=== PATIENT | male | born 1960 | race Caucasian/White ===

== ENCOUNTER 2022-04-21 20:02 | Emergency (ER) | payer SELFPAY ==
[~2022-04-21 20:02] MED LIST: Iopamidol 370 76% 100 ML VIAL ONE
[2022-04-21] MEDS ORDERED: Ondansetron PF 4 MG/2 ML Vial ONE (22:22)
[2022-04-21] MEDS ORDERED: Dicyclomine 20 MG/2 ML VIAL ONE (22:22)
[2022-04-21] MEDS ORDERED: Lactated Ringer's 1,000 ML ONE (22:22)
[2022-04-21] MEDS ORDERED: Lidocaine Viscous Sol 2% 15 ml UD Cup ONE (22:22)
[2022-04-21] MEDS ORDERED: Mag-Al Plus 1200 MG/1200 MG/120 MG/30 ML UDCUP ONE (22:22)
[2022-04-21 23:04] LABS: Band 9 % (5-11); Lymphocytes 3 % (21-51); MDiff Complete? YES; Mean Corpuscular HGB CONC 34.2 g/dL (32.0-36.0); Mean Corpuscular Hemoglobin 29.9 pg (27.0-31.0); Mean Corpuscular Volume 87.5 fl (78.0-98.0); Mean Platelet Volume 9.5 fL (7.4-10.4); Monocytes 2 % (0-10); Neutrophil 84 % (42-75); Platelet Count 237 10x3/uL (130-400); RBC Distribution Width 11.9 % (11.5-14.5); RBC Morphology Normal; Reactive Lymphocytes 1 % (0-10); Red Blood Cell (RBC) Count 6.01 mill/uL (4.70-6.10); White Blood Cell (WBC) Count 20.1 10x3/uL (4.8-10.8)
[2022-04-21 23:06] LABS: ALT (SGPT) 26 U/L (8-55); AST (SGOT) 13 U/L (5-34); Albumin 4.3 g/dL (3.4-4.8); Alkaline Phosphatase 29 U/L (40-110); Anion Gap 17 mmol/L (10-20); BUN (Urea Nitrogen) 16 mg/dL (8.4-25.7); Calc. Creatinine Clearance 0 mL/min (70-130); Calcium 9.4 mg/dL (7.8-10.44); Carbon Dioxide 26 mmol/L (23-31); Chloride 99 mmol/L (98-107); Estimated GFR 70; Globulin 2.8 g/dL (2.4-3.5); Glucose 242 mg/dL (80-115); Lipase 5 U/L (8-78); Magnesium 1.8 mg/dL (1.6-2.6); Potassium 4.5 mmol/L (3.5-5.1); Protein, Total 7.1 g/dL (5.8-8.1); Sodium 137 mmol/L (136-145)
[2022-04-21 23:55] LABS: Bilirubin Negative (Negative); Blood, Urine Negative (Negative); Clarity Clear (Clear); Glucose, Urine (Dipstick) 500 mg/dL (Negative); Ketone, Urine 80 mg/dL (Negative); Leukocyte Negative (Negative); Nitrite Negative (Negative); Protein, Urine (Dipstick) Negative (Neg-Trace); Urobilinogen 0.2 mg/dL (Less than 2); pH, Urine 6.5 (5.0-9.0)
[2022-04-22 00:09] LABS: Amphetamine Not Detected (NotDetected); Benzodiazepine Screen Detected (NotDetected); Cocaine Metabolite Screen Not Detected (NotDetected); Methamphetamine Not Detected (NotDetected); Opiate Screen Not Detected (NotDetected); Phencyclidine (PCP) Not Detected (NotDetected); THC/Cannabinoid Screen Detected (NotDetected)
[2022-04-22 00:10] LABS: Barbiturates Screen Not Detected (NotDetected); Medtox Control Line Valid? VALID (VALID); Methadone Not Detected (NotDetected); Oxycodone Screen Not Detected (NotDetected); Tricyclic Screen Not Detected (NotDetected)
[2022-04-22] MEDS ORDERED: Lactated Ringer's 1,000 ML ONE (00:24)
[2022-04-22 01:36] LABS: Lactic Acid 1.5 mmol/L (0.5-2.2)
== END 2022-04-22 01:48 | disposition home or self-care (01) ==
LOC: MADERS 20:02
DX: K52.9 Noninfective gastroenteritis and colitis, unspecified (principal); E11.65 Type 2 diabetes mellitus with hyperglycemia; Z20.822 Contact with and (suspected) exposure to COVID-19
CPT/HCPCS: 74177; 80053; 80306; 81003; 83605; 83690; 83735; 85025; 87040; 87804; 93005; 94760; 96361; 96372; 96374; J2405; J7120; Q9967; U0003; U0005

== ENCOUNTER 2022-04-23 06:47 | Emergency (ER) | payer SELFPAY ==
[2022-04-23] MEDS ORDERED: Sodium Chloride 0.9% 1,000 ML ONE (07:39)
[2022-04-23] MEDS ORDERED: Ondansetron PF 4 MG/2 ML Vial ONE (07:39)
[2022-04-23] MEDS ORDERED: Morphine 4 MG/ML VIAL ONE ×2 (07:39→09:27)
[2022-04-23] MEDS ORDERED: Prochlorperazine 10 MG/2 ML VIAL ONE (07:39)
[2022-04-23 07:52] LABS: #Basophils 0.1 thou/uL (0.0-0.2); #Lymphocytes 0.7 thou/uL (1.20-3.40); #Monocytes 0.4 thou/uL (0.11-0.59); #Neutrophils 14.8 thou/uL (1.40-6.50); %Basophils 0.7 % (0.0-1.0); %Lymphocytes 4.4 % (21.0-51.0); %Monocytes 2.7 % (0.0-10.0); %Neutrophils 92.2 % (42.0-75.0); Hemoglobin 18.1 g/dL (14.0-18.0); Mean Corpuscular HGB CONC 34.5 g/dL (32.0-36.0); Mean Corpuscular Hemoglobin 30.1 pg (27.0-31.0); Mean Corpuscular Volume 87.2 fl (78.0-98.0); Mean Platelet Volume 9.3 fL (7.4-10.4); Platelet Count 204 10x3/uL (130-400); RBC Distribution Width 11.5 % (11.5-14.5)
[2022-04-23 08:03] LABS: CK (CPK) 183 U/L (30-200); CRP (Inflammatory) Less than 0.50 mg/dL (= or < 0.5); Magnesium 1.9 mg/dL (1.6-2.6)
[2022-04-23 08:08] LABS: ALT (SGPT) 26 U/L (8-55); AST (SGOT) 22 U/L (5-34); Albumin 4.4 g/dL (3.4-4.8); Alkaline Phosphatase 32 U/L (40-110); Anion Gap 18 mmol/L (10-20); BUN (Urea Nitrogen) 15 mg/dL (8.4-25.7); Bilirubin, Total 1.1 mg/dL (0.2-1.2); Calc. Creatinine Clearance 0 mL/min (70-130); Calcium 9.1 mg/dL (7.8-10.44); Carbon Dioxide 22 mmol/L (23-31); Chloride 99 mmol/L (98-107); Estimated GFR 76; Glucose 204 mg/dL (80-115); Lipase 73 U/L (8-78); Potassium 4.4 mmol/L (3.5-5.1); Protein, Total 7.4 g/dL (5.8-8.1); Sodium 135 mmol/L (136-145)
[2022-04-23 08:49] LABS: Bilirubin Negative (Negative); Blood, Urine Negative (Negative); Clarity Clear (Clear); Glucose, Urine (Dipstick) 500 mg/dL (Negative); Ketone, Urine 80 mg/dL (Negative); Leukocyte Negative (Negative); Nitrite Negative (Negative); Protein, Urine (Dipstick) Negative (Neg-Trace); pH, Urine 6.5 (5.0-9.0)
[2022-04-23] MEDS ORDERED: Mag-Al Plus 1200 MG/1200 MG/120 MG/30 ML UDCUP ONE (08:52)
[2022-04-23] MEDS ORDERED: Lidocaine Viscous Sol 2% 15 ml UD Cup ONE (08:52)
[2022-04-23] MEDS ORDERED: Sodium Chloride 0.9% 2,000 ML ONE (09:18)
[2022-04-23] MEDS ORDERED: Iopamidol 370 76% 100 ML VIAL ONE (09:48)
== END 2022-04-23 13:20 | disposition home or self-care (01) ==
LOC: MADERS 06:47
DX: K52.9 Noninfective gastroenteritis and colitis, unspecified (principal); E11.9 Type 2 diabetes mellitus without complications
CPT/HCPCS: 36415; 71045; 74177; 80053; 81003; 82550; 83605; 83690; 83735; 84484; 85025; 86140; 87040; 93005; 96361; 96374; 96375; 96376; J0780; J2270; J2405; J7050; Q9967